=== PATIENT | female | born 1965 | race Caucasian/White ===

== ENCOUNTER 2021-08-08 18:14 | Emergency (ER) | payer MEDICAID, SELFPAY ==
[2021-08-08 18:15] VITALS: BP 159/96; PULSE 91; RESP 18; TEMP 36.8; O2SAT 98; BMI 35.5
--- NOTE | 2021-08-08 18:42 | HMH.EDDENT ---
ED Disposition Clinical Impression: Dental caries, Dental abscess Disposition: Home, Self-Care Condition on Discharge: Good Instructions: Tooth Abscess Prescriptions: Hydrocod/Acet 5/325 mg [[place] 5/325mg tablet] 1 tab PO Q6HP PRN #7 tab PRN Reason: Moderate Pain Transmission Status: Received by [id number] Clindamycin HCl 450 mg PO TID 10 Days #90 cap Transmission Status: Pending to [id number] Ondansetron [Zofran 4mg ODT] 4 mg PO BIDP PRN #10 tab PRN Reason: Nausea Transmission Status: Pending to [id number] Referrals: Misty Morris [Primary Care Provider] - [facility] [Other] - Critical Care Critical Care Time: No Attestation: On 08/08/21, the high probability of a clinically significant, sudden or life threatening deterioration of the following system(s) required my full and direct attention, intervention and personal management. The time I documented below is in addition to time spent performing reported procedures but includes the following listed in this critical care notation. Medical Decision Making - Medical Records Medical records reviewed: Yes: I reviewed the patient's medical records. - Fransico Inquiry Pt receiving controlled substance: No Vital Signs: 08/08/21 18:15 Temperature 98.3 F Temperature Source Oral Pulse Rate [Right Radial] 91 H Respiratory Rate 18 Blood Pressure [Right Arm] 159/96 H Blood Pressure Mean [Right Arm] 117 Blood Pressure Source [Right Arm] Automatic Cuff Blood Pressure Position [Right Arm] Sitting 02 Sat by Pulse Oximetry 98 Oxygen Delivery Method Room Air Medical Decision Narrative: 55-year-old female presented to the emergency department with some dental pain. Patient does have evidence of a prior dental fracture with infected dental carry. The patient does need to extraction. I did explain to the patient that she needs to do this immediately. We do not have dental services at this hospital, however I did recommend the emergency dental clinic [facility] for tooth extraction. She is welcome to go to any dentist she likes, however this needs to be addressed urgently. Patient was placed on antibiotic as well as analgesics. Given strict return precautions. Verbalized understanding. Dental HPI - General Chief complaint: Dental/Oral Stated complaint: R jaw swollen/pain Time Seen by Provider: 08/08/21 18:20 Mode of Arrival: Ambulatory Limitations: No Limitations Description of Symptoms (Recalled from ER Triage Doc. by RN): Pt c/o rt jaw pain and swelling. Pt believes she has an abscess tooth - History of Present Illness HPI Narrative: This is a 55-year-old female presented to the emergency department with right lower tooth discomfort. The patient has had a fractured tooth for quite some time. She has poor dentition. Patient states that her tooth is just been hurting worse and worse. She started noticing some erythema at the gumline. She states that she has been unable to follow-up with a dentist. She not have any fevers or chills. No headache or change in vision. No focal weakness. No chest pain or shortness of breath. Abdominal pain or vomiting. No diarrhea. - Related Data Previous Rx's Medication Instructions Recorded Clindamycin HCl 450 mg PO TID 10 Days #90 cap 08/08/21 Hydrocod/Acet 5/325 mg [[place] 1 tab PO Q6HP PRN #7 tab 08/08/21 5/325mg tablet] Ondansetron [Zofran 4mg ODT] 4 mg PO BIDP PRN #10 tab 08/08/21 Allergies Allergy/AdvReac Type Severity Reaction Status Date / Time PCN (penicillin) Allergy Severe SWELLING Uncoded 05/25/17 14:45 From Cephalexin Monohydrate Allergy Unknown Uncoded 05/25/17 14:45 [facility] History - Hepatitis A Screen Drug use history?: No High risk sexual behaviors?: No History of sexually transmitted infection?: No Currently employed?: No Childcare worker?: No Do you have indoor plumbing?: Yes Do you have electricity?: Yes Att
[2021-08-08 18:53] VITALS: BP 147/87; PULSE 90; RESP 18; TEMP 36.8; O2SAT 98
== END 2021-08-08 18:57 | disposition home or self-care (01) ==
PROVIDERS: Emergency Provider Emergency Medicine; PCP Family Medicine
DX: K04.7 Periapical abscess without sinus (principal); K02.9 Dental caries, unspecified; S02.5XXA Fracture of tooth (traumatic), initial encounter for closed fracture; R68.84 Jaw pain; Z88.0 Allergy status to penicillin; Z88.8 Allergy status to other drugs, medicaments and biological substances
CPT/HCPCS: 99283

== ENCOUNTER 2021-10-25 08:42 | Emergency (ER) | payer MEDICAID, SELFPAY ==
--- NOTE | 2021-10-25 08:46 | HMH.EDGENADL ---
ED Disposition Clinical Impression: Otalgia Qualifiers: Laterality: left Qualified Code(s): H92.02 - Otalgia, left ear Pharyngitis Qualifiers: Pharyngitis/tonsillitis etiology: unspecified etiology Qualified Code(s): J02.9 - Acute pharyngitis, unspecified Disposition: Home, Self-Care Condition on Discharge: Good Additional Instructions: follow up pcp as needed Prescriptions: clindamycin HCL [Cleocin HCl] 300 mg PO Q6 #40 cap Transmission Status: Pending to [facility]/pharmacy #[id number] Referrals: Misty Morris [Primary Care Provider] - - Critical Care Critical Care Time: No Attestation: On , the high probability of a clinically significant, sudden or life threatening deterioration of the following system(s) required my full and direct attention, intervention and personal management. The time I documented below is in addition to time spent performing reported procedures but includes the following listed in this critical care notation. Medical Decision Making - Medical Records Medical records reviewed: Yes: I reviewed the patient's medical records. - Fransico Inquiry Pt receiving controlled substance: No General Adult HPI - General Stated complaint: lt ear/throat pain Time Seen by Provider: 10/25/21 08:46 - History of Present Illness HPI narrative: left otalgia, sore throat, 1 day Onset (ago): day(s) Severity: moderate Consistency: constant Relieving factors: none Exacerbating factors: none Associated symptoms: denies other symptoms - Related Data Previous Rx's Medication Instructions Recorded Clindamycin HCl 450 mg PO TID 10 Days #90 cap 08/08/21 Hydrocod/Acet 5/325 mg [[place] 1 tab PO Q6HP PRN #7 tab 08/08/21 5/325mg tablet] Ondansetron [Zofran 4mg ODT] 4 mg PO BIDP PRN #10 tab 08/08/21 clindamycin HCL [Cleocin HCl] 300 mg PO Q6 #40 cap 10/25/21 Allergies Allergy/AdvReac Type Severity Reaction Status Date / Time PCN (penicillin) Allergy Severe SWELLING Uncoded 05/25/17 14:45 From Cephalexin Monohydrate Allergy Unknown Uncoded 05/25/17 14:45 [facility] History - Hepatitis A Screen Attestation statement:: This patient has been screened for Hepatitis A risk factors. ROS Obtained: Yes All systems reviewed & no additional complaints Physical Exam - General General appearance: alert, in no apparent distress - Head Head exam: atraumatic, normocephalic - Eye Eye exam: Present: normal appearance, PERRL, EOMI - ENT ENT exam: Present: normal exam, normal oropharynx, mucous membranes moist, mucous membranes dry, TM's normal bilaterally, normal external ear exam - Neck Neck exam: Present: normal inspection, full ROM, trachea midline, tenderness, other (ttp below ear into neck locally, no viz abn) - Respiratory Respiratory exam: Absent: respiratory distress, wheezes, stridor - Cardiovascular Cardiovascular exam: Present: regular rate, normal rhythm. Absent: tachycardia - Neurological Exam Neurological exam: Present: alert, oriented X3, CN II-XII intact - Skin Skin exam: Present: warm, intact, normal color. Absent: rash
[2021-10-25 08:54] VITALS: BP 164/95; PULSE 94; RESP 17; TEMP 36.8; O2SAT 98; BMI 36.0
[2021-10-25 09:14] VITALS: BP 155/80; PULSE 90; RESP 17; TEMP 36.8; O2SAT 98
== END 2021-10-25 09:15 | disposition home or self-care (01) ==
PROVIDERS: Emergency Provider Emergency Medicine; PCP Family Medicine
DX: H92.02 Otalgia, left ear (principal); J02.9 Acute pharyngitis, unspecified; Z88.0 Allergy status to penicillin; Z88.1 Allergy status to other antibiotic agents; Z83.3 Family history of diabetes mellitus
CPT/HCPCS: 99283